=== PATIENT | female | born 1955 | race Caucasian/White ===

== ENCOUNTER 2020-05-07 06:21 | Outpatient (CLI) | payer BC, OTHER ==
[2020-05-08 14:48] LABS: SARS-CoV-2 MS2 Positive; SARS-CoV-2 N Gene Negative; SARS-CoV-2 S Gene Negative; SARS-CoV-2 by NAA Not Detected (NotDetected); SARS-CoV-2 orf1ab Negative
== END 2020-05-07 06:22 | disposition home or self-care (01) ==
LOC: LABBT 06:21
PROVIDERS: ATTEND Ophthalmology Retina Specialist
DX: H35.341 Macular cyst, hole, or pseudohole, right eye (principal); Z20.828 Contact with and (suspected) exposure to other viral communicable diseases
CPT/HCPCS: 87635; U0003

== ENCOUNTER 2020-05-11 06:50 | Day surgery (SDC) | payer BC ==
[2020-05-10 11:39] VITALS: BMI 29.6
[~2020-05-11 06:50] MED LIST: EPINEPHrine 0.3 MG in Ophthalmic Irrigation Solution 500 ML IRR SCH; Fentanyl 100 MCG/2 ML VIAL ONE; Midazolam HCl 2 mg/2 ml Vial ONE
[2020-05-11] MEDS ORDERED: Phenylephrine 2.5% Ophth Soln 5 ML BOT ONE (06:58)
[2020-05-11] MEDS ORDERED: Cyclopentolate 1% Opth Drop 2 ML BOT ONE (06:58)
--- NOTE | 2020-05-11 11:26 | OP ---
DATE OF PROCEDURE: 05/11/2020 PRINCIPAL PREOPERATIVE DIAGNOSIS: Macular hole, right eye. POSTOPERATIVE DIAGNOSIS: Macular hole, right eye. PROCEDURES PERFORMED: 1. 25-gauge pars plana vitrectomy, right eye. 2. Internal limiting membrane peel, right eye. 3. 15% SF6 fill, right eye. ESTIMATED BLOOD LOSS: None. SPECIMENS REMOVED: None. COMPLICATIONS: None. ANESTHESIA: MAC with sub-Tenon's block. DESCRIPTION OF PROCEDURE: The patient was identified in the preoperative holding area, where the correct eye being the right eye was marked for surgery. The patient was taken to the operating room, where MAC anesthesia was induced. The right eye was prepped and draped in the usual sterile ophthalmic fashion for surgery. A wire-clip lid speculum was placed. An inferonasal conjunctival peritomy was fashioned with Alexis scissors for administration of sub-Tenon's block. The block consisted of 1:1 ratio of 4% lidocaine and 0.75% Marcaine. A total of 5 mL was administered. A standard 25-gauge pars plana vitrectomy platform was fashioned with trocars placed approximately 3.5 mm from the limbus. The infusion was noted to be within the vitreous cavity prior to being turned on to an infusion pressure of 30 mmHg. The light pipe and microvitrector were introduced in the eye under visualization of the BIOM viewing system. A careful core vitrectomy was performed followed by injection of Kenalog. A subsequent gentle posterior vitreous detachment was created followed by completion of peripheral shave vitrectomy. Following vitrectomy, ICG dye was used to stain the internal limiting membrane. Using the Blake ILM forceps, the internal limiting membrane was removed in a circumferential fashion about the fovea. The peel extended approximately 2 disk diameters in radius circumferentially. Following peeling, the microvitrector was reintroduced in the eye to remove any residual vitreous debris. A 360-degree scleral depressed exam of the periphery revealed no defects. An air-fluid exchange was performed followed by an air-gas exchange with 15% SF6. The cannulas were sequentially removed and all sclerotomies were noted to be gas tight. Subconjunctival injection of Kenalog was performed followed by removal of the wire-clip lid speculum, application of TobraDex ophthalmic ointment was followed by light patch and shield. The patient tolerated the procedure well and was taken to outpatient recovery area in good condition. Job ID: [id number]
[2020-05-11] MEDS ORDERED: BUPIVACAINE 0.75% ONE (14:29)
[2020-05-11] MEDS ORDERED: Lidocaine 4% PF 5 ML AMP ONE (14:29)
[2020-05-11] MEDS ORDERED: Maxitrol 0.1% Opth Oint 3.5 GM TUBE ONE (14:29)
[2020-05-11] MEDS ORDERED: Triamcinolone 40 MG/ML VIAL ONE (14:29)
[2020-05-11] MEDS ORDERED: PROPOFOL 200 MG/20 ML VIAL ONE (14:29)
[2020-05-11] MEDS ORDERED: Indocyanine Green 25 MG/10 ML VIAL ONE (14:29)
== END 2020-05-11 10:40 | disposition home or self-care (01) ==
LOC: SDC 06:50
PROVIDERS: ATTEND Ophthalmology Retina Specialist
PROC: 08T43ZZ Resection of Right Vitreous, Percutaneous Approach (ICD-10-PCS; principal; 2020-05-11)
PROC: 08NE3ZZ Release Right Retina, Percutaneous Approach (ICD-10-PCS; principal; 2020-05-11)
DX: H35.341 Macular cyst, hole, or pseudohole, right eye (principal); Z79.82 Long term (current) use of aspirin; Z79.84 Long term (current) use of oral hypoglycemic drugs; Z79.899 Other long term (current) drug therapy; Z88.0 Allergy status to penicillin; Z88.2 Allergy status to sulfonamides
CPT/HCPCS: 67025; J0171; J2001; J2250; J2704; J3010; J3301

== ENCOUNTER 2022-01-31 10:21 | Outpatient (CLI) | payer MEDICARE, BC | END 2022-01-31 10:22 | disposition home or self-care (01) | LOC: BICMAMMO 10:21 | PROVIDERS: ATTEND Family Medicine | DX: Z12.31 Encounter for screening mammogram for malignant neoplasm of breast (principal); N63.14 Unspecified lump in the right breast, lower inner quadrant | CPT/HCPCS: 77063; 77067 ==

== ENCOUNTER 2022-02-16 11:07 | Outpatient (CLI) | payer MEDICARE, BC | END 2022-02-16 11:08 | disposition home or self-care (01) | LOC: BICRAD 11:07 | PROVIDERS: ATTEND Family Medicine | DX: M25.551 Pain in right hip (principal) ==

== ENCOUNTER 2022-03-06 12:52 | Outpatient (CLI) | payer MEDICARE, BC | END 2022-03-06 12:53 | disposition home or self-care (01) | LOC: BICMAMMO 12:52 | PROVIDERS: ATTEND Family Medicine | DX: Z12.31 Encounter for screening mammogram for malignant neoplasm of breast (principal); R92.8 Other abnormal and inconclusive findings on diagnostic imaging of breast | CPT/HCPCS: 76642; 77065; G0279 ==

== ENCOUNTER 2022-09-07 09:01 | Outpatient (CLI) | payer MEDICARE, BC | END 2022-09-07 09:02 | disposition home or self-care (01) | LOC: BICMAMMO 09:01 | PROVIDERS: ATTEND Family Medicine | DX: R92.8 Other abnormal and inconclusive findings on diagnostic imaging of breast (principal); N63.11 Unspecified lump in the right breast, upper outer quadrant | CPT/HCPCS: 76642; 77065; G0279 ==

== ENCOUNTER 2023-08-21 11:33 | Outpatient (CLI) | payer MEDICARE, BC ==
[2023-08-21 13:23] LABS: #Eosinphils 0.2 10x3/uL (0.0-0.5); #Monocytes 0.6 10x3/uL (0.0-1.1); #Neutrophils 3.6 10x3/uL (1.5-8.4); %Basophils 0.5 % (0.0-2.0); %Eosinophils 2.4 % (0.0-6.0); %Lymphocytes 32.9 % (18.0-47.0); %Monocytes 9.7 % (0.0-10.0); %Neutrophils 54.2 % (40.0-75.0); Hematocrit 40.1 % (34.9-44.5); Hemoglobin 13.6 g/dL (12.0-15.5); Mean Corpuscular HGB CONC 33.9 g/dL (32.0-36.0); Mean Corpuscular Hemoglobin 32.2 pg (27.0-33.0); Mean Platelet Volume 9.2 fl (7.4-10.4); Platelet Count 254 10x3/uL (150-450); RBC Distribution Width 12.5 % (11.5-14.5); Red Blood Cell (RBC) Count 4.22 10x6/uL (3.90-5.03); White Blood Cell (WBC) Count 6.6 10x3/uL (3.5-10.5)
[2023-08-21 13:46] LABS: Anion Gap 14 mmol/L (10-20); BUN (Urea Nitrogen) 17 mg/dL (9.8-20.1); Calc. Creatinine Clearance 0 mL/min (70-130); Calcium 9.6 mg/dL (7.8-10.44); Carbon Dioxide 23 mmol/L (23-31); Chloride 106 mmol/L (98-107); Estimated GFR 64; Glucose 138 mg/dL (80-115); Potassium 4.4 mmol/L (3.5-5.1); Sodium 139 mmol/L (136-145)
== END 2023-08-21 11:34 | disposition home or self-care (01) ==
LOC: LABBT 11:33
PROVIDERS: ATTEND Orthopaedic Surgery
DX: Z01.812 Encounter for preprocedural laboratory examination (principal); G56.03 Carpal tunnel syndrome, bilateral upper limbs
CPT/HCPCS: 80048; 85025

== ENCOUNTER 2023-08-30 08:26 | Day surgery (SDC) | payer MEDICARE, BC ==
[2023-08-21 12:31] VITALS: BMI 29.2
[2023-08-30] MEDS ORDERED: Lidocaine 1% (PF) 30 ML VIAL ONE (08:56)
[2023-08-30] MEDS ORDERED: EPINEPHrine 1 MG/ML VIAL ONE ×2 (08:56→10:56)
[2023-08-30] MEDS ORDERED: fentaNYL 50 mcg/mL 1 mL Vial ONE (09:12)
[2023-08-30] MEDS ORDERED: Lidocaine 1% PF 5 ML VIAL ONE (09:12)
[2023-08-30] MEDS ORDERED: PROPOFOL 40 ML ONE (09:12)
[2023-08-30] MEDS ORDERED: Ondansetron PF 4 MG/2 ML Vial ONE (09:13)
[2023-08-30] MEDS ORDERED: Clindamycin/D5W 900 mg/50 ml Premix Bag ONE (10:03)
[2023-08-30] MEDS ORDERED: Midazolam HCl 2 mg/2 ml Vial ONE (10:06)
[2023-08-30] MEDS ORDERED: PROPOFOL 20 ML ONE (10:41)
[2023-08-30] MEDS ORDERED: Bupivacaine 0.25% HCL 30 ML VIAL ONE (10:55)
== END 2023-08-30 13:19 | disposition home or self-care (01) ==
LOC: SDC 08:26
PROVIDERS: ATTEND Orthopaedic Surgery
PROC: 01N50ZZ Release Median Nerve, Open Approach (ICD-10-PCS; principal; 2023-08-30)
DX: G56.02 Carpal tunnel syndrome, left upper limb (principal); Z88.0 Allergy status to penicillin; Z88.2 Allergy status to sulfonamides; Z90.49 Acquired absence of other specified parts of digestive tract; Z90.89 Acquired absence of other organs; Z98.890 Other specified postprocedural states
CPT/HCPCS: 64721; J0171; J3010; J2001; J2250; J2405; J2704; J3490; S0020

== ENCOUNTER 2024-04-18 09:39 | Outpatient (CLI) | payer MEDICARE, BC | END 2024-04-18 09:40 | disposition home or self-care (01) | LOC: BICMAMMO 09:39 | PROVIDERS: ATTEND Family Medicine | DX: R92.8 Other abnormal and inconclusive findings on diagnostic imaging of breast (principal); N63.10 Unspecified lump in the right breast, unspecified quadrant | CPT/HCPCS: 76642; 77066; G0279 ==

== ENCOUNTER → 2024-05-12 | Day surgery (SDC) | payer MEDICARE, BC | LOC: BICULT 12:27 | PROVIDERS: ATTEND Family Medicine | PROC: 0HBU3ZX Excision of Left Breast, Percutaneous Approach, Diagnostic (ICD-10-PCS; principal; 2024-05-12) | DX: C50.812 Malignant neoplasm of overlapping sites of left female breast (principal); R92.8 Other abnormal and inconclusive findings on diagnostic imaging of breast; Z17.0 Estrogen receptor positive status [ER+] | CPT/HCPCS: 19083; 88305; 88361 ==

== ENCOUNTER 2024-06-20 07:02 | Day surgery (SDC) | payer MEDICARE, BC ==
[2024-06-20] MEDS ORDERED: Dexamethasone 20 MG/5 ML VIAL ONE (12:10)
[2024-06-20] MEDS ORDERED: Lidocaine 2% PF 5 ML VIAL ONE (12:10)
[2024-06-20] MEDS ORDERED: PROPOFOL 200 MG/20 ML VIAL ONE (12:10)
[2024-06-20] MEDS ORDERED: ePHEDrine Sulfate 50 MG/10 ML VIAL ONE (12:10)
== END 2024-06-20 15:45 | disposition home or self-care (01) ==
LOC: MAMMO 07:02
PROVIDERS: ATTEND Surgery
PROC: BH41ZZZ Ultrasonography of Left Breast (ICD-10-PCS; principal; 2024-06-20)
DX: C50.912 Malignant neoplasm of unspecified site of left female breast (principal); Z90.49 Acquired absence of other specified parts of digestive tract; Z90.710 Acquired absence of both cervix and uterus; Z88.0 Allergy status to penicillin; Z88.2 Allergy status to sulfonamides; E11.9 Type 2 diabetes mellitus without complications
CPT/HCPCS: 19285; 76098; 77065; 78195; 82962; A4648; A9541; J0171; J0665; J1100 ×2; J1956; J2405; J2704; J3010; 36416; 88307; 88341; 88342; J1885